=== PATIENT | male | born 1945 | race Caucasian/White ===

== ENCOUNTER 2018-06-05 06:10 | Inpatient (IN) | payer OTHER ==
[2018-05-25 17:15] VITALS: BMI 25.9
[2018-06-05] MEDS ORDERED: CELECOXIB 200 MG CAPSULE PO ONE ×2 (06:11→07:46)
[2018-06-05] MEDS ORDERED: GABAPENTIN 300 MG CAPSULE (FP) PO ONE ×2 (06:11→07:46)
[2018-06-05] MEDS ORDERED: TRANEXAMIC ACID 1000 MG/10 ML VIAL IVPUSH ONE (06:11)
[2018-06-05] MEDS ORDERED: CEFAZOLIN 2 GM in DEXTROSE 5%-WATER - 50 ML IVPB ONE (06:11)
[2018-06-05] MEDS ORDERED: oxyCODONE HCL 10 MG SUSTAINED ACTING TABLET PO ONE (06:44)
[2018-06-05] MEDS ORDERED: MIDAZOLAM HCL 2 MG/2 ML SINGLE DOSE VIAL ONE (07:25)
[2018-06-05] MEDS ORDERED: BUPIVACAINE HCL/PF 2.5 MG/ML - 30 ML VIAL IJ ONE (07:25)
[2018-06-05] MEDS ORDERED: BUPIVACAINE LIPOSOME/PF (EXPAREL) 266 MG/20 ML VIAL ONE (07:25)
--- NOTE | 2018-06-05 07:32 | HP ---
History & Physical Update - History History: No Change - Physical Physical: No Change - Assessment Assessment: No Change - Plan Plan: No Change (Full H&P inchart from 05/28/2018)
[2018-06-05] MEDS ORDERED: ROPIVICAINE 0.2%/MORPH PF/KETOROLAC - 51ML DISP.SYRINGE IA ONE ×2 (07:46→09:30)
[2018-06-05] MEDS ORDERED: ONDANSETRON 4 MG/2 ML VIAL ONE (08:10)
[2018-06-05] MEDS ORDERED: DEXAMETHASONE SOD PHOSPHATE 4 MG/1 ML VIAL ONE (08:10)
[2018-06-05] MEDS ORDERED: SUCCINYLCHOLINE CHLORIDE 200 MG/10 ML VIAL ONE (08:10)
[2018-06-05] MEDS ORDERED: ceFAZolin SODIUM 1 GM VIAL ONE (08:10)
[2018-06-05] MEDS ORDERED: PROPOFOL 20 ML ONE ×2 (08:45)
[2018-06-05] MEDS ORDERED: PROMETHAZINE HCL 25 MG/1 ML VIAL IVPUSH PRN (09:49)
[2018-06-05] MEDS ORDERED: ONDANSETRON 4 MG/2 ML VIAL IVPUSH PRN ×2 (09:49→10:17)
[2018-06-05] MEDS ORDERED: MAG HYDROX/AL HYDROX/SIMETH 30 ML UNIT-DOSE CUP PO PRN (10:17)
[2018-06-05] MEDS ORDERED: LACTATED RINGERS SOLUTION 1,000 ML IV SCH (10:30)
--- NOTE | 2018-06-05 10:30 | OP ---
Operative Note - Note: Operative Date: 06/05/18 Pre-Operative Diagnosis: left knee osteoarthritis Operation: left total knee replacement ROLO Surgeon: Carlos Enrique Yip It Integration Architect: Amy Cabrera Anesthesiologist/RANGELAND MANAGEMENT SPECIALIST: Jony Taylor Anesthesia: Spinal Estimated Blood Loss (mls): 50 Fluid Volume Replaced (mls): 550 Operative Report Dictated: Yes
--- NOTE | 2018-06-05 10:31 | SURG ---
Surgery Pizza Delivery Driver Note Pizza Delivery Driver: Amy Cabrera PA-C Date of Service: 06/05/18 Diagnosis: left knee osteoarhritis Procedure: left total knee replacement/ROLO I was present for the entirety of the operative procedure. For further detail, please refer to operative report. Visit type - Case Type Case Type: Scheduled - New patient This patient is new to me today: Yes Date on this admission: 06/05/18
[2018-06-05] MEDS: ACETAMINOPHEN 325 MG TABLET (FP) PO SCH ×2 (11:00→17:49)
--- NOTE | 2018-06-05 14:15 | OP ---
DATE OF OPERATION: 06/05/2018 PREOPERATIVE DIAGNOSIS: Left knee osteoarthritis. POSTOPERATIVE DIAGNOSIS: Left knee osteoarthritis. OPERATION PERFORMED: Left total knee arthroplasty with ROLO robot. SURGEON: Carlos Enrique Yip MD ED EDUCATIONAL AIDE: JODI Rivas TYPE OF ANESTHESIA: Spinal and block DISPOSITION: Patient returned to the recovery room in stable condition. COMPONENTS USED: Inna Triathlon, size 4 left posterior stabilized femur, size 4 [place] tibia, 11-mm posterior stabilized articular insert, and 31-mm patella. DRAINS PLACED: One Hemovac. ESTIMATED BLOOD LOSS: Less than 50 mL. TOTAL TOURNIQUET TIME: 90 minutes. PREOPERATIVE RANGE OF MOTION: 5 degrees of hyperextension to 130 degrees range of motion. POSTOPERATIVE RANGE OF MOTION: 0 degrees to 140 degrees. FINDINGS: Severe end-stage arthritis INDICATIONS FOR THE PROCEDURE: Patient failed non-operative treatment for left knee arthritis and was indicated for left total knee replacement. Preoperatively in the waiting area as well as the office, I had a long discussion with the patient regarding the plan, the expected outcome, and the risks, benefits, and alternatives of surgery. The risks include, but are not limited to, infection which may require future surgery and removal of implants, bleeding which may require a transfusion, damage to nerves, arteries, veins, tendons, muscles, and other adjacent structures leading to possible numbness, weakness, decreased function, and/or possible need for surgical repair. Also discussed was the possibility of intraoperative and postoperative fractures, implant loosening, stiffness, need for extensive therapy and need for revision surgery for a variety of reasons. We also discussed blood clots and other possible medical complications. This was discussed at length, and consent was obtained. PROCEDURE IN DETAIL: Patient was taken to the operating room and placed on the operating table in the supine position. Following induction of spinal anesthesia, a well-padded tourniquet was placed high in the left thigh, and the left lower extremity was prepped and draped in a sterile fashion. A time-out was performed to confirm the correct side. We verified that the side was marked and confirmed the correct patient and procedure to be performed as well as that the patient received the appropriate preoperative antibiotics and tranexamic acid and had a compression device on the non-operative leg and was registered in the robot. The tourniquet was elevated followed by a midline incision and medial parapatellar arthrotomy checkpoints were placed through 2 stab incisions in the tibia and the femur. We placed tibia and femur antennae. We then registered the patient, balanced knee, and while protecting the surrounding soft tissues, made all of our bony cuts. We then cut the os. We placed the laminar grocery shopper sequentially in the lateral and medial joint spaces. Posterior aspects, cruciate ligaments, and menisci were all excised. We then trialed with our sizes listed above. We had full extension and were well balanced with regards to varus and valgus stress in flexion and extension and had full flexion, and patella tracked centrally. We then measured the patella to 24 mm, cut it down to 14.5 mm using a guide and reconstructed with a 31-mm button, and performed a lateral double cut. With the patellar trial in place, the patella tracked centrally. There was good stability, soft tissue tension, and range of motion. We then removed the trials after puncturing the tibia, and then, soaked the knee with 3 minutes, and then, copiously irrigated the knee. We then did sequential supplementation starting with the tibia and then the femur. Excess cement was removed. We inserted the final poly and it seated flush. With the cement hardened and all the implants in, the knee had full extension and was well balanced with regards to varus and valgus stress in flexion and extension, had a flexion to 135, and the patella tracked centrally. The knee was copiously irrigated, and then, a further cocktail was injected. A deep drain was placed, and the knee arthrotomy was closed with 0 Vicryl, 2-0 Vicryl and yeny were used for the skin. We made sure that all checkpoints and antennae had been removed. A dry sterile compression dressing was placed, and the tourniquet was released. Compartments were soft at the end of the procedure. Pulses were palpated. Patient was transferred to the recovery room in stable condition. We mobilized weightbearing as tolerated. WOUND CLASSIFICATION: Clean. COMPLICATIONS: None. SPECIMENS: None. Biran [id number]
--- NOTE | 2018-06-05 14:16 | PN ---
Physical Exam: SUBJECTIVE: Patient seen and examined, patient is resting comfortably in bed, denies any chest pain or shortness of breath OBJECTIVE: patient is 73 y/o male with a past medical history of degenerative joint disease, BPH, hypertension, hyperlipidemia. Patient is S/P left total knee replacement (annie), spinal anesthesia. Vital Signs Period Temp Pulse Resp BP Sys/Soliman Pulse Ox Last 24 Hr 97.6 F-97.8 F 59-68 18-18 119-162/72-88 94-99 GENERAL: The patient is awake, alert, and fully oriented, in no acute distress. HEAD: Normal with no signs of trauma. EYES: PERRL, extraocular movements intact, sclera anicteric, conjunctiva clear. No ptosis. ENT: Ears normal, nares patent, oropharynx clear without exudates, moist mucous membranes. NECK: Trachea midline, full range of motion, supple. LUNGS: Breath sounds equal, clear to auscultation bilaterally, no wheezes, no crackles, no accessory muscle use. HEART: Regular rate and rhythm, S1, S2 without murmur, rub or gallop. ABDOMEN: Soft, nontender, nondistended, normoactive bowel sounds, no guarding, no rebound, no hepatosplenomegaly, no masses. EXTREMITIES: 2+ pulses, warm, well-perfused, no edema. LEFT LOWER EXTREMITY: scd/celi, hemovac drain, less than 3 second capillary refill, +3 pedal pulse NEUROLOGICAL: Cranial nerves II through XII grossly intact. Normal speech, gait not observed. PSYCH: Normal mood, normal affect. SKIN: Warm, dry, normal turgor, no rashes or lesions noted Active Medications Generic Name Dose Route Start Last Admin Trade Name Freq PRN Reason Stop Dose Admin Acetaminophen 650 mg 06/05/18 12:00 06/05/18 11:00 Tylenol - PO 06/08/18 11:59 650 mg Q6H ADILENE Administration Al Hydroxide/Mg Hydroxide 30 ml 06/05/18 10:17 Mylanta Oral Suspension - PO Q4H PRN DYSPEPSIA Aspirin 325 mg 06/05/18 22:00 Asa - PO BID ADILENE Celecoxib 200 mg 06/06/18 10:00 Celebrex - PO DAILY COUNTS INCLUDE 234 BEDS AT THE [facility] Fentanyl 50 mcg 06/05/18 09:49 Sublimaze Injection - IVPUSH [id number] PRN PAIN-PACU ORDER X 4 DOSES ONLY Cefazolin Sodium 1 gram in 50 mls @ 100 mls/hr 06/05/18 16:00 Ancef 1 Gm Premixed Ivpb - IVPB 06/06/18 00:29 Q8H COUNTS INCLUDE 234 BEDS AT THE [facility] Lactated Ringer's 1,000 mls @ 125 mls/hr 06/05/18 10:30 Lactated Ringers Solution IV 06/06/18 06:00 ASDIR COUNTS INCLUDE 234 BEDS AT THE [facility] Losartan Potassium 25 mg 06/06/18 10:00 Cozaar - PO DAILY COUNTS INCLUDE 234 BEDS AT THE [facility] Multivitamins/Minerals/Vitamin C 1 tab 06/06/18 10:00 Tab-A-Vit - PO DAILY COUNTS INCLUDE 234 BEDS AT THE [facility] Ondansetron HCl 4 mg 06/05/18 09:49 Zofran Injection IVPUSH Q6H PRN NAUSEA AND/OR VOMITING Ondansetron HCl 4 mg 06/05/18 10:17 Zofran Injection IVPUSH Q6H PRN NAUSEA Oxycodone HCl 5 mg 06/05/18 09:49 Roxicodone - PO Q3H PRN PAIN LEVEL 1-5 Oxycodone HCl 10 mg 06/05/18 09:49 Roxicodone - PO Q3H PRN PAIN LEVEL 6-10 Oxycodone HCl 10 mg 06/05/18 10:00 Oxycontin - PO 06/08/18 09:49 BID COUNTS INCLUDE 234 BEDS AT THE [facility] Pantoprazole Sodium 40 mg 06/06/18 10:00 Protonix - PO DAILY COUNTS INCLUDE 234 BEDS AT THE [facility] Promethazine HCl 12.5 mg 06/05/18 09:49 Phenergan Injection - IVPUSH Q6H PRN NAUSEA-FOR RESCUE AFTER 15 MIN Senna/Docusate Sodium 2 tablet 06/05/18 22:00 Pericolace - PO BID COUNTS INCLUDE 234 BEDS AT THE [facility] ASSESSMENT/PLAN: 1) MS s/p left TKR pod #0 - prn pain medication - monitor drainage from hemovac, repeat h/h in AM - incentive spirometer - physcial therapy as per the orthopedist 2) cardiovascular hypertension - continue cozar, strict monitoring of b/p f/e/n - low sodium diet - replete electrolytes prn ppx - pt - protonix - asa dispo: pt requires inpatient admission Visit type - Emergency Visit Emergency Visit: No - New Patient This patient is new to me today: Yes Date on this admission: 06/05/18 - Critical Care Critical Care patient: No - Discharge Referral Referred to [facility] No
[2018-06-05] MEDS: CEFAZOLIN 1 GM/D5W 1 GRAM/50 ML BAG IVPB SCH (16:46)
[2018-06-05] MEDS: SENNOSIDES/DOCUSATE COMBO (SENNA PLUS) TABLET (UD) PO SCH (21:04)
[2018-06-05] MEDS: ASPIRIN 325 MG TABLET PO SCH (21:04)
[2018-06-05] MEDS: oxyCODONE HCL 10 MG SUSTAINED ACTING TABLET PO SCH (21:04)
[2018-06-06] MEDS: ACETAMINOPHEN 325 MG TABLET (FP) PO SCH ×2 (00:25→06:49)
[2018-06-06] MEDS: CEFAZOLIN 1 GM/D5W 1 GRAM/50 ML BAG IVPB SCH (00:25)
[2018-06-06 08:28] LABS: HEMOGLOBIN 12.9 GM/dl (11.7-16.9); MCH 33.3 pg (25.7-33.7); MEAN CELL VOLUME 97.8 fl (80-96); MEAN PLT VOLUME 7.9 fl (7.5-11.1); PLATELET COUNT 272 K/MM3 (134-434); RBC 3.89 M/mm3 (4.00-5.60); RDW 12.2 % (11.9-15.9); WHITE BLOOD COUNT 15.2 K/mm3 (4.0-10.8)
[2018-06-06 08:39] LABS: ANION GAP 7 MMOL/L (8-16); BLOOD UREA NITROGEN 22 mg/dl (7-18); CALCIUM 8.7 mg/dl (8.4-10.2); CHLORIDE 105 mmol/L (98-107); CO2 25 mmol/L (22-28); CREATININE 0.9 mg/dl (0.6-1.3); GLUCOSE,RANDOM 112 mg/dl (74-106); POTASSIUM 4.4 mmol/L (3.5-5.1); SODIUM 137 mmol/L (136-145)
--- NOTE | 2018-06-06 09:39 | PN ---
Progress Note (short form) - Note Progress Note: patients seen and examined, pain controlled af vss labs reviewed nad a and o x3 compatments soft dressing dry nvid hvac removed A/P:POD#1 pt/ot/wbat dc when stable
[2018-06-06] MEDS: ASPIRIN 325 MG TABLET PO SCH ×2 (10:17→21:55)
[2018-06-06] MEDS: CELECOXIB 200 MG CAPSULE PO SCH (10:17)
[2018-06-06] MEDS: LOSARTAN POTASSIUM 25 MG TABLET PO SCH (10:17)
[2018-06-06] MEDS: SENNOSIDES/DOCUSATE COMBO (SENNA PLUS) TABLET (UD) PO SCH ×2 (10:18→21:55)
[2018-06-06] MEDS: PANTOPRAZOLE 40 MG TABLET (FP) PO SCH (10:18)
[2018-06-06] MEDS: oxyCODONE HCL 5 MG TABLET PO PRN ×2 (10:18→19:46)
[2018-06-06] MEDS: MULTIVITAMINS (DAILY MVI) TABLET (FP) PO SCH (10:18)
[2018-06-06] MEDS: oxyCODONE HCL 10 MG SUSTAINED ACTING TABLET PO SCH ×2 (10:18→21:55)
--- NOTE | 2018-06-06 11:12 | PN ---
Physical Exam: SUBJECTIVE: Patient seen and examined oob to chair. Pain is "minimal." Tolerating PO, no nausea. OBJECTIVE: Vital Signs Period Temp Pulse Resp BP Sys/Soliman Pulse Ox Last 24 Hr 97.7 F-98.0 F 65-76 18-18 119-142/64-76 94-97 GENERAL: The patient is awake, alert, and fully oriented, in no acute distress. LUNGS: Breath sounds equal, clear to auscultation bilaterally, no wheezes, no crackles, no accessory muscle use. HEART: Regular rate and rhythm, S1, S2 ABDOMEN: Soft, nontender, nondistended LOWER EXTREMITIES: bilaterally 2+ pulses, warm, well-perfused, no edema; SCDs, TEDs; left toes pink, warm, dry, no swelling, motor/sensory intact; surgical wound not visualized NEUROLOGICAL: Cranial nerves II through XII grossly intact. Normal speech, gait not observed. Laboratory Results - last 24 hr 06/06/18 06/06/18 07:05 07:05 WBC 15.2 H RBC 3.89 L Hgb 12.9 Hct 38.0 MCV 97.8 H MCH 33.3 MCHC 34.0 RDW 12.2 Plt Count 272 MPV 7.9 Sodium 137 Potassium 4.4 Chloride 105 Carbon Dioxide 25 Anion Gap 7 L BUN 22 H Creatinine 0.9 Creat Clearance w eGFR > 60 Random Glucose 112 H D Calcium 8.7 Active Medications Generic Name Dose Route Start Last Admin Trade Name Freq PRN Reason Stop Dose Admin Acetaminophen 650 mg 06/05/18 12:00 06/06/18 06:49 Tylenol - PO 06/08/18 11:59 650 mg Q6H ADILENE Administration Al Hydroxide/Mg Hydroxide 30 ml 06/05/18 10:17 Mylanta Oral Suspension - PO Q4H PRN DYSPEPSIA Aspirin 325 mg 06/05/18 22:00 06/06/18 10:17 Asa - PO 325 mg BID ADILENE Administration Celecoxib 200 mg 06/06/18 10:00 06/06/18 10:17 Celebrex - PO 200 mg DAILY ADILENE Administration Fentanyl 50 mcg 06/05/18 09:49 Sublimaze Injection - IVPUSH [id number] PRN PAIN-PACU ORDER X 4 DOSES ONLY Losartan Potassium 25 mg 06/06/18 10:00 06/06/18 10:17 Cozaar - PO 25 mg DAILY ADILENE Administration Multivitamins/Minerals/Vitamin C 1 tab 06/06/18 10:00 06/06/18 10:18 Tab-A-Vit - PO 1 tab DAILY ADILENE Administration Ondansetron HCl 4 mg 06/05/18 09:49 Zofran Injection IVPUSH Q6H PRN NAUSEA AND/OR VOMITING Ondansetron HCl 4 mg 06/05/18 10:17 Zofran Injection IVPUSH Q6H PRN NAUSEA Oxycodone HCl 5 mg 06/05/18 09:49 10 10:18 Roxicodone - PO 5 mg Q3H PRN Administration PAIN LEVEL 1-5 Oxycodone HCl 10 mg 06/05/18 09:49 Roxicodone - PO Q3H PRN PAIN LEVEL 6-10 Oxycodone HCl 10 mg 06/05/18 10:00 06/06/18 10:18 Oxycontin - PO 06/08/18 09:49 10 mg BID ADILENE Administration Pantoprazole Sodium 40 mg 06/06/18 10:00 06/06/18 10:18 Protonix - PO 40 mg DAILY ADILENE Administration Promethazine HCl 12.5 mg 06/05/18 09:49 Phenergan Injection - IVPUSH Q6H PRN NAUSEA-FOR RESCUE AFTER 15 MIN Senna/Docusate Sodium 2 tablet 06/05/18 22:00 06/06/18 10:18 Pericolace - PO 2 tablet BID ADILENE Administration ASSESSMENT/PLAN 73 year-old male with a PMH significant for HTN, HLD, BPH, and DJD. Admitted for left total knee replacement. Degenerative joint disease s/p left total knee replacement on 06/05 --POD #1 --seen and evaluated by surgery Dr. Yip this morning, Hemovac drain removed --pain well-managed on PO meds --incentive spirometry --PT/WBAT --ASA 325mg BID x 6 weeks --bowel regimen --post-operative leukocytosis, no fever; continue to monitor Hypertension --BP stable --continue losartan Hyperlipidemia --not on statin therapy BPH --not on medication --no difficulty urinating reported FEN Fluids: PO intake adequate Electrolytes: replete as indicated Nutrition: regular diet DVT prophylaxis: SCDs, TEDs, ASA Physical therapy Dispo: continues to require inpatient care. Full code. Visit type - Emergency Visit Emergency Visit: No - New Patient This patient is new to me today: Yes Date on this admission: 06/06/18 - Critical Care Critical Care patient: No
[2018-06-06 23:59] VITALS: PULSE 85; TEMP 98.1
[2018-06-07] MEDS: ACETAMINOPHEN 325 MG TABLET (FP) PO SCH ×2 (00:06→06:39)
[2018-06-07 06:25] VITALS: BP 142/82
[2018-06-07] MEDS: oxyCODONE HCL 5 MG TABLET PO PRN ×2 (06:38→09:10)
[2018-06-07] MEDS: oxyCODONE HCL 10 MG SUSTAINED ACTING TABLET PO SCH (09:09)
[2018-06-07] MEDS: CELECOXIB 200 MG CAPSULE PO SCH (09:09)
[2018-06-07] MEDS: SENNOSIDES/DOCUSATE COMBO (SENNA PLUS) TABLET (UD) PO SCH (09:09)
[2018-06-07] MEDS: ASPIRIN 325 MG TABLET PO SCH (09:09)
[2018-06-07] MEDS: LOSARTAN POTASSIUM 25 MG TABLET PO SCH (09:09)
[2018-06-07] MEDS: PANTOPRAZOLE 40 MG TABLET (FP) PO SCH (09:10)
[2018-06-07] MEDS: MULTIVITAMINS (DAILY MVI) TABLET (FP) PO SCH (09:10)
[2018-06-07 09:21] LABS: BASO % 0.3 % (0-2.0); EOS % 2.2 % (0-4.5); HEMATOCRIT 36.8 % (35.4-49); HEMOGLOBIN 12.5 GM/dl (11.7-16.9); LYMPH % 16.1 % (8-40); MCH 33.3 pg (25.7-33.7); MCHC 34.1 g/dl (32.0-35.9); MEAN CELL VOLUME 97.7 fl (80-96); MONO % 10.1 % (3.8-10.2); NEUT % 71.3 % (42.8-82.8); PLATELET COUNT 213 K/MM3 (134-434); RBC 3.77 M/mm3 (4.00-5.60); RDW 12.4 % (11.9-15.9); WHITE BLOOD COUNT 10.5 K/mm3 (4.0-10.8)
[2018-06-07 09:33] LABS: ANION GAP 10 MMOL/L (8-16); BLOOD UREA NITROGEN 21 mg/dl (7-18); CALCIUM 8.3 mg/dl (8.4-10.2); CHLORIDE 104 mmol/L (98-107); CO2 25 mmol/L (22-28); CREATININE 0.8 mg/dl (0.6-1.3); GLUCOSE,RANDOM 80 mg/dl (74-106); MAGNESIUM 1.9 mg/dL (1.8-2.4); POTASSIUM 4.1 mmol/L (3.5-5.1); SODIUM 139 mmol/L (136-145)
--- NOTE | 2018-06-07 10:33 | DS ---
Physical Exam: SUBJECTIVE: Patient seen and examined. Walked with PT. Feels ready to go home. OBJECTIVE: Vital Signs Period Temp Pulse Resp BP Sys/Soliman Pulse Ox Last 24 Hr 98.1 F-98.2 F 71-85 16-19 118-142/62-82 94-94 PHYSICAL EXAM GENERAL: The patient is awake, alert, and fully oriented, in no acute distress. LUNGS: Breath sounds equal, clear to auscultation bilaterally, no wheezes, no crackles, no accessory muscle use. HEART: Regular rate and rhythm, S1, S2 ABDOMEN: Soft, nontender, nondistended LOWER EXTREMITIES: bilaterally 2+ pulses, warm, well-perfused, no edema; SCDs, TEDs; left toes pink, warm, dry, no swelling, motor/sensory intact; surgical wound not visualized NEUROLOGICAL: Cranial nerves II through XII grossly intact. Normal speech, gait not observed. Laboratory Results - last 24 hr 06/07/18 06/07/18 06:45 06:45 WBC 10.5 RBC 3.77 L Hgb 12.5 Hct 36.8 MCV 97.7 H MCH 33.3 MCHC 34.1 RDW 12.4 Plt Count 213 D MPV 8.0 Absolute Neuts (auto) 7.5 Neutrophils % 71.3 Lymphocytes % 16.1 D Monocytes % 10.1 Eosinophils % 2.2 Basophils % 0.3 Sodium 139 Potassium 4.1 Chloride 104 Carbon Dioxide 25 Anion Gap 10 BUN 21 H Creatinine 0.8 Creat Clearance w eGFR > 60 Random Glucose 80 D Calcium 8.3 L Magnesium 1.9 HOSPITAL COURSE: Date of Admission:06/05/18 Date of Discharge: 06/07/18 73 year-old male with a PMH significant for HTN, HLD, BPH, and DJD. Admitted for left total knee replacement. Degenerative joint disease s/p left total knee replacement on 06/05 --seen and evaluated by surgery Dr. Yip and Hemovac drain removed on POD#1 --pain was well-managed on PO meds --perioperative antibiotics complete --PT/WBAT at time of discharge --ASA 325mg BID x 6 weeks Hypertension --BP stable --continued losartan Hyperlipidemia --not on statin therapy BPH --not on medication --no difficulty urinating Minutes to complete discharge: 35 Discharge Summary Reason For Visit: LEFT KNEE OSTEOARTHRITIS Condition: Good - Instructions Diet, Activity, Other Instructions: The patient was given discharge instructions and prescriptions prior to surgery from Dr. Evans. You were given aspirin 325 mg two times daily to help prevent blood clots, take this medication as prescribed by your surgeon. Disposition: VNS/HOME HEALTH CARE - Home Medications Comprehensive Discharge Medication List: Ambulatory Orders Ascorbic Acid [Vitamin C] 500 mg PO DAILY 05/25/18 Losartan Potassium [Cozaar -] 25 mg PO DAILY 05/25/18 Multivitamin [One Daily] 1 each PO DAILY 05/25/18 Saw/Vit E/Sod Candy/Lyc/Beta/Pyg [Prostate Health Caplet] 1 each PO DAILY This patient is new to me today: No Emergency Visit: No Critical Care patient: No - Discharge Referral Referred to [facility] No
--- NOTE | 2018-06-12 14:25 | PATH ---
Surgical Pathology Report Patient Name: JOSE TORRES Med. Rec. #: [id number] /Age/Gender: 1945 (Age: 73) / M Account: [id number] Location: [facility] Taken: 06/05/2018 Received: 06/05/2018 Reported: 06/09/2018 Physicians: Carlos Enrique Yip M.D. Specimen(s) Received LEFT KNEE BONES Clinical History Left knee osteoarthritis Final Diagnosis LEFT KNEE BONES, RESECTION: DEGENERATIVE JOINT DISEASE, LEFT KNEE. Electronically Signed Jamel Antonio M.D. Gross Description Received in formalin labeled "left knee bones," is a 14.0 x 11.0 x 2.0 cm aggregate of multiple portions of bone and soft tissue. The tibial plateau measures 7.6 x 5.1 x 1.8 cm. There is each 2.4 cm in greatest dimension area of eburnation present. The remaining articular surfaces are florence-yellow and focally granular. The underlying trabecular bone is yellow and hard. Felt Strip Finisher sections are submitted in one cassette, following decalcification. 06/08/2018 [facility]08[facility]2018
== END 2018-06-07 11:45 | disposition home health service (06) | DRG 470 ==
LOC: FM/S 06:10
PROVIDERS: ADMIT Orthopaedic Surgery; ATTEND Nurse Practitioner Acute Care
PROC: 8E0Y0CZ Robotic Assisted Procedure of Lower Extremity, Open Approach (ICD-10-PCS; 2018-06-05)
PROC: 0SRD0J9 Replacement of Left Knee Joint with Synthetic Substitute, Cemented, Open Approach (ICD-10-PCS; principal; 2018-06-05 08:22)
DX: M17.12 Unilateral primary osteoarthritis, left knee (principal); I10 Essential (primary) hypertension; E78.5 Hyperlipidemia, unspecified; N40.0 Benign prostatic hyperplasia without lower urinary tract symptoms
CPT/HCPCS: 36415; 73560-TC-LT-FY; 80048; 83735; 85025; 85027; 88304-TC; 88311-TC; 94760; 97116-GP; 97162-GP